=== PATIENT | male | born 1945 | race Caucasian/White ===

== ENCOUNTER 2019-03-30 16:43 | Inpatient (IN) ==
[2019-03-30] MEDS ORDERED: ONDANSETRON HCL/PF 2 MG/ML VIAL ONE (16:49)
[2019-03-30] MEDS ORDERED: MORPHINE SULFATE 4 MG/ML SYRG ONE (16:49)
[2019-03-30] MEDS ORDERED: DIPHTH,PERTUSS(ACELL),TET VAC 0.5 ML VIAL IM ONE (16:51)
[2019-03-30] MEDS ORDERED: ONDANSETRON HCL/PF 2 MG/ML VIAL IV ONE (16:51)
[2019-03-30] MEDS ORDERED: MORPHINE SULFATE 4 MG/ML SYRG IV ONE (16:51)
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
[2019-03-30] MEDS ORDERED: HYDROmorphone HCL 1 MG/ML DISP.SYRIN IV ONE ×4 (17:12→19:22)
[2019-03-30 19:09] LABS: Hemoglobin 12.8 gm/dL (13.5-18.0); Mean Cell Volume 90.5 fl (78-100); Mean Corpuscular Hemoglobin 30.5 pg (27-31); Mean Corpuscular Hgb Conc 33.7 g/dl (32-36); Mean Platelet Volume 9.7 fl (8-11.3); Neutrophil # 8.8 K/mm3 (1.3-6.0); Neutrophil % 81.1 % (42-75.0); Platelet Count 167 K/mm3 (150-450); Red Cell Distribution Width 12.4 % (11.5-14.0); White Blood Count 10.9 K/mm3 (4.0-10.5)
[2019-03-30 19:20] LABS: INR 1.04 INR (0.92-1.08); Prothrombin Time (Patient) 10.3 Seconds (9.1-10.7)
[2019-03-30 19:23] LABS: Albumin * 3.7 gm/dl (3.4-5.0); Anion Gap 12.5 mmol/L (6.8-13.8); BUN/Creatinine Ratio 18.2 (9.0-21.6); Bilirubin, Total 1.1 mg/dL (0.0-1.1); Calcium * 9.1 mg/dL (7.9-10.9); Carbon Dioxide 27.6 mmol/L (24-32.6); Potassium 4.1 mmol/L (3.4-4.6)
[2019-03-30] MEDS: ONDANSETRON HCL/PF 2 MG/ML VIAL IV PRN (21:49)
[2019-03-30] MEDS: HYDROmorphone HCL 1 MG/ML DISP.SYRIN IV PRN (21:52)
[2019-03-30] MEDS ORDERED: FINASTERIDE 5 MG TABLET PO SCH (22:45)
[2019-03-30] MEDS ORDERED: DOXAZOSIN MESYLATE 2 MG TABLET PO SCH (22:45)
[2019-03-30] MEDS: METOPROLOL SUCCINATE 50 MG TABLET.SA PO SCH (23:38)
[2019-03-30] MEDS: TIMOLOL MALEATE 50 DROP BTL LEFTEYE SCH (23:51)
[2019-03-30] MEDS: TRAVOPROST 25 DROP BTL EACHEYE SCH (23:51)
[2019-03-31] MEDS: RINGER'S SOLUTION,LACTATED 1,000 ML IV PRN ×4 (02:34→19:09)
[2019-03-31] MEDS: HYDROmorphone HCL 1 MG/ML DISP.SYRIN IV PRN ×6 (02:35→23:59)
[2019-03-31] MEDS: METOPROLOL SUCCINATE 50 MG TABLET.SA PO SCH ×2 (08:05→22:00)
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
[2019-03-31] MEDS: ONDANSETRON HCL/PF 2 MG/ML VIAL IV PRN (13:05)
[2019-03-31] MEDS ORDERED: ceFAZolin SODIUM 1 GM VIAL IV PRN (15:02)
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
[2019-03-31] MEDS ORDERED: BUPIVACAINE HCL/EPINEPHRINE 50 ML VIAL IJ ONE (19:46)
[2019-03-31] MEDS ORDERED: ACETAMINOPHEN 500 MG TABLET PO PRN (19:57)
[2019-03-31] MEDS ORDERED: MAG HYDROX/ALUMINUM HYD/SIMETH 30 ML UDC PO PRN (19:57)
[2019-03-31] MEDS ORDERED: MAGNESIUM HYDROXIDE 30 ML UDC PO PRN (19:57)
[2019-03-31] MEDS ORDERED: diphenhydrAMINE HCL 50 MG/ML VIAL IV PRN (19:57)
[2019-03-31] MEDS ORDERED: oxyCODONE HCL/ACETAMINOPHEN 1 TAB TABLET PO PRN (19:57)
[2019-03-31] MEDS ORDERED: NORMAL SALINE 1,000 ML IV PRN (20:01)
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
--- NOTE | 2019-03-31 20:22 | ANES ---
Post Anesthesia Discharge - Transfer of Care Transfer of Care handoff given to nurse: Yes - Discharge from PACU Discharge from PACU when meets criteria: Yes - Discharge to ASU Discharge to ASU-no complications/pt stable: Yes
--- NOTE | 2019-03-31 20:32 | ANES ---
Post Anesthesia Assessment - Vital Signs Vitals: Last Vital Signs Temp 36.8 C 03/31/19 20:15 Pulse 87 03/31/19 20:30 Resp 18 03/31/19 20:30 BP 129/65 03/31/19 20:30 Pulse Ox 96 03/31/19 20:30 Airway Patency: Normal - Mental Status Level Of Consciousness: Awake - Pain Level Pain Score: 0 - N/V Assessment Nausea/Vomiting Presence: None Dehydration:: No
[2019-03-31] MEDS: TIMOLOL MALEATE 50 DROP BTL LEFTEYE SCH (21:57)
[2019-03-31] MEDS: DOXAZOSIN 4 MG PO SCH (21:59)
[2019-03-31] MEDS: FINASTERIDE 5 MG TABLET PO SCH (21:59)
[2019-03-31] MEDS: TRAVOPROST 25 DROP BTL EACHEYE SCH (22:00)
[2019-03-31] MEDS: oxyCODONE HCL/ACETAMINOPHEN 1 TAB TABLET PO PRN (22:02)
[2019-03-31] MEDS: SENNOSIDES/DOCUSATE SODIUM 1 TAB TABLET PO SCH (22:05)
[2019-03-31] MEDS: ceFAZolin SODIUM 2 GM in DEXTROSE 5 % IN WATER 100 ML IV SCH ×2 (23:23)
[2019-04-01] MEDS: HYDROmorphone HCL 1 MG/ML DISP.SYRIN IV PRN ×3 (01:59→06:57)
[2019-04-01] MEDS: oxyCODONE HCL/ACETAMINOPHEN 1 TAB TABLET PO PRN ×5 (02:24→22:58)
[2019-04-01 05:41] LABS: Hemoglobin 10.5 gm/dL (13.5-18.0); Mean Corpuscular Hemoglobin 30.5 pg (27-31); Mean Corpuscular Hgb Conc 32.8 g/dl (32-36); Mean Platelet Volume 9.8 fl (8-11.3); Platelet Count 142 K/mm3 (150-450); Red Blood Count 3.44 M/mm3 (4.7-6.0); Red Cell Distribution Width 12.5 % (11.5-14.0); White Blood Count 9.1 K/mm3 (4.0-10.5)
[2019-04-01 05:43] LABS: Total Cells Counted 100
[2019-04-01 06:00] LABS: Albumin * 2.9 gm/dl (3.4-5.0); Anion Gap 10.3 mmol/L (6.8-13.8); BUN/Creatinine Ratio 10.7 (9.0-21.6); Bilirubin, Total 1.8 mg/dL (0.0-1.1); Ca. Corrected For Albumin 8.6 mg/dL (8.4-10.2); Carbon Dioxide 29.2 mmol/L (24-32.6); Potassium 4.5 mmol/L (3.4-4.6)
[2019-04-01 06:01] LABS: Band 9 % (0-2.0); Hypochromia 1+; Lymphocyte 7 % (20-51); Monocyte 2 % (0-9); Neutrophil 82 % (42-75); Neutrophil # 7.5 K/mm3 (1.3-6.0); Platelet Estimate Decreased (NORMAL); Toxic Granulation 1+
[2019-04-01] MEDS: ceFAZolin SODIUM 2 GM in DEXTROSE 5 % IN WATER 100 ML IV SCH ×4 (08:42→15:42)
[2019-04-01] MEDS: ASPIRIN 325 MG TABLET.DR PO SCH ×2 (08:48→20:12)
--- NOTE | 2019-04-01 10:58 | PN ---
Subjective - Date and Time Seen Date: 04/01/19 Time: 07:30 Subjective Narrative: Patient reports he is doing well postoperatively. Notes that he had significant moderate pain throughout the night, but that was controlled with a combination of oral and IV pain medication PRN. Patient notes his pain currently is well controlled. Patient notes he is comfortable in splint. He also notes that there is drainage that had to be reinforced on his splint in a couple locations. He notes he is return to p.o. diet. He has not worked with PT on ambulation at this time. He notes his pain is better with rest, worse with significant movement. Objective - Vitals Vitals: Last Vital Signs Temp 36.7 C 04/01/19 10:48 Pulse 73 04/01/19 10:48 Resp 16 04/01/19 10:48 BP 122/56 04/01/19 10:48 Pulse Ox 94 04/01/19 08:43 - Abnormal Lab Findings Abnormal Lab Findings: Abnormal Lab Results 04/01/19 04/01/19 Range/Units 05:37 05:37 RBC 3.44 L (4.7-6.0) M/mm3 Hgb 10.5 L (13.5-18.0) gm/dL Hct 32.0 L (42.0-52.0) % Plt Count 142 L (150-450) K/mm3 Neutrophils % (Manual) 82 H (42-75) % Band Neuts % (Manual) 9 H (0-2.0) % Lymphocytes % (Manual) 7 L (20-51) % Neutrophils # (Manual) 7.5 H (1.3-6.0) K/mm3 Lymphocytes # (Manual) 0.6 L (1.5-3.5) k/mm3 Platelet Estimate Decreased L (NORMAL) Random Glucose 128 H (70-110) mg/dL Total Bilirubin 1.8 H (0.0-1.1) mg/dL Alkaline Phosphatase 38 L (50-170) U/L Total Protein 6.0 L (6.2-8.2) gm/dL Albumin 2.9 L (3.4-5.0) gm/dl - Exam Constitutional: Present: Alert, Cooperative, No distress Respiratory: Present: no respiratory distress Extremity: Present: other - RLE--> short leg splint in place, sensation intact light touch, distal capillary refill brisk, 5/5 toe flexion extension, no significant impaired range of motion of toes, area of blood-tinged drainage on the proximal anterior aspect as well as the distal posterior aspect with appropriate reinforcement of the dressing Appearance: Present: appropriate appearance Eye contact: Present: cooperative Cauti Physician Documentation - Urinary Catheter Management Urethral (Velasco) Date of Insertion: 03/31/19 Time of Insertion: 16:30 Date of Removal: 04/01/19 Time of Removal: 00:15 Assessment/Plan Plan Narrative: - 73 y/o male postop day 1 status post open reduction internal fixation as well as intramedullary nailing of right tibia/fibula fractures -Nonweightbearing with assistive device right lower extremity -P.o. diet as tolerated -P.o. pain medication PRN, gradually decrease IV medication only for breakthrough emergency pain -PT/OT work on ambulation status listed above -Maintain short leg splint in place, reinforce PRN -VTE prophylaxis 325 mg aspirin twice daily -Hemoglobin stable, continue to monitor -Disposition: bandages will be reevaluated later today, determine if reinforcement or reapplication is needed, plan to discharge home, follow-up with orthopedic outpatient clinic in 2 weeks, work with PT the past ambulation goals, control pain with p.o. pain medication once all his goals are met will consider discharge plan - Problems/Diagnosis (1) Tibia/fibula fracture, shaft Problem: Acute Qualifiers: Encounter type: initial encounter Fracture type: closed Laterality: right Qualified Code(s): S82.201A - Unspecified fracture of shaft of right tibia, initial encounter for closed fracture; S82.401A - Unspecified fracture of shaft of right fibula, initial encounter for closed fracture
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
[2019-04-01] MEDS: DOXAZOSIN 4 MG PO SCH (20:12)
[2019-04-01] MEDS: TIMOLOL MALEATE 50 DROP BTL LEFTEYE SCH (20:13)
[2019-04-01] MEDS: METOPROLOL SUCCINATE 50 MG TABLET.SA PO SCH (20:14)
[2019-04-01] MEDS: FINASTERIDE 5 MG TABLET PO SCH (20:14)
[2019-04-01] MEDS: SENNOSIDES/DOCUSATE SODIUM 1 TAB TABLET PO SCH (20:14)
[2019-04-01] MEDS: TRAVOPROST 25 DROP BTL EACHEYE SCH (20:14)
[2019-04-01] MEDS ORDERED: ceFAZolin SODIUM 2 GM in DEXTROSE 5 % IN WATER 100 ML IV SCH ×2 (23:00)
[2019-04-02] MEDS: oxyCODONE HCL/ACETAMINOPHEN 1 TAB TABLET PO PRN ×2 (02:59→08:07)
[2019-04-02 05:32] LABS: Hematocrit 29.3 % (42.0-52.0); Hemoglobin 9.6 gm/dL (13.5-18.0); Mean Cell Volume 92.4 fl (78-100); Mean Corpuscular Hemoglobin 30.3 pg (27-31); Mean Corpuscular Hgb Conc 32.8 g/dl (32-36); Mean Platelet Volume 9.6 fl (8-11.3); Platelet Count 128 K/mm3 (150-450); Red Blood Count 3.17 M/mm3 (4.7-6.0); Red Cell Distribution Width 12.4 % (11.5-14.0)
[2019-04-02 05:47] LABS: Anion Gap 9.4 mmol/L (6.8-13.8); BUN/Creatinine Ratio 11.4 (9.0-21.6); Calcium * 8.3 mg/dL (7.9-10.9); Carbon Dioxide 29.5 mmol/L (24-32.6); Estimated Creat Clear 66.7; Potassium 3.9 mmol/L (3.4-4.6)
[2019-04-02] MEDS: ASPIRIN 325 MG TABLET.DR PO SCH (08:06)
--- NOTE | 2019-04-02 09:04 | PN ---
Subjective - Date and Time Seen Date: 04/02/19 Time: 07:45 Subjective Narrative: Patient today notes his pain is significantly improved. He he noted it at 1/10 to nursing earlier this morning. Patient has been transition to p.o. pain medication without significant complication. Patient has been tolerating p.o. diet. He notes he has been up with physical therapy and using a walker to ambulate. Patient states he wishes to go home today. Objective - Vitals Vitals: Last Vital Signs Temp 37.2 C 04/02/19 06:58 Pulse 81 04/02/19 06:58 Resp 12 04/02/19 06:58 BP 142/54 04/02/19 06:58 Pulse Ox 94 04/02/19 06:58 - Abnormal Lab Findings Abnormal Lab Findings: Abnormal Lab Results 04/02/19 04/02/19 Range/Units 05:30 05:30 RBC 3.17 L (4.7-6.0) M/mm3 Hgb 9.6 L (13.5-18.0) gm/dL Hct 29.3 L (42.0-52.0) % Plt Count 128 L (150-450) K/mm3 Random Glucose 123 H (70-110) mg/dL - Exam Constitutional: Present: Alert, Cooperative, No distress Respiratory: Present: no respiratory distress Extremity: Present: other - RLE--> lower leg splint and soft bandages in place, no significant drainage on bandages, distal capillary refill brisk, sensation intact light touch, appropriate range of motion/strength of all digits, diffuse mild tenderness about right lower leg Eye contact: Present: cooperative Thoughts: Present: normal thought pattern Cauti Physician Documentation - Urinary Catheter Management Urethral (Velasco) Date of Insertion: 03/31/19 Time of Insertion: 16:30 Date of Removal: 04/01/19 Time of Removal: 00:15 Assessment/Plan Plan Narrative: - 73 y/o male postop day 2 status post open reduction internal fixation as well as intramedullary nailing of right tibia and fibula fracture -Nonweightbearing with use of assistive device -P.o. diet as tolerated -P.o. pain medication PRN, Percocet 5/325 mg 1-2 tabs every 4-6 hours p.o. as needed, pain medication will be prescribed prior to discharge -DVT prophylaxis, continue 325 mg aspirin twice daily until follow-up in orthopedic outpatient clinic -Maintain right lower leg splint and soft dressings in place, keep clean and dry -Call orthopedic outpatient clinic with any significant concerns, drainage, acute changes in symptoms -Follow-up at 2 weeks postop in orthopedic outpatient clinic - Problems/Diagnosis (1) Tibia/fibula fracture, shaft Problem: Acute Qualifiers: Encounter type: initial encounter Fracture type: closed Laterality: right Qualified Code(s): S82.201A - Unspecified fracture of shaft of right tibia, initial encounter for closed fracture; S82.401A - Unspecified fracture of shaft of right fibula, initial encounter for closed fracture
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
[2019-04-02 12:17] VITALS: BP 130/64
== END 2019-04-02 12:00 | disposition home or self-care (01) | DRG 494 ==
LOC: ER 16:43 → MS 19:39 → OBSVTOIN 19:39 → INTOOBSV 19:39 → MS 20:38
PROVIDERS: ADMIT Family Medicine; ATTEND Internal Medicine
DX: Y92.414 Local residential or business street as the place of occurrence of the external cause; S82.251A Displaced comminuted fracture of shaft of right tibia, initial encounter for closed fracture; K76.0 Fatty (change of) liver, not elsewhere classified; V29.88XA Motorcycle rider (driver) (passenger) injured in other specified transport accidents, initial encounter; S82.451A Displaced comminuted fracture of shaft of right fibula, initial encounter for closed fracture; E88.81 Metabolic syndrome and other insulin resistance; I10 Essential (primary) hypertension; M15.9 Polyosteoarthritis, unspecified; N40.0 Benign prostatic hyperplasia without lower urinary tract symptoms
CPT/HCPCS: 36415; 71010; 71045; 72170; 73552; 73590; 73700; 80048; 80053; 83735; 85007; 85025; 85027; 85610; 90471; 90715; 93005; 96374; 96375; 97116; 97162; 97530; 99285; G0378; J2405